=== PATIENT | male | born 1930 | race Caucasian/White ===

== ENCOUNTER 2016-07-30 09:48 | Day surgery (SDC) | payer MEDICARE, OTHER ==
--- NOTE | ~2016-07-30 | EGD ---
EGD REPORT [facility] [address] [address] NAME: KARTIK CRUZ : [birth year] STATUS : REG [facility]#: [id number] AGE: 85 ADM/REG DATE : 07/30/16 MR#: [id number] REPORT SERV DATE: 07/30/16 DICTATED BY: RONI PAIGE DATE: 07/30/16 REPORT STATUS : Draft TRANSCRIBED BY: [employer] DATE: 07/30/16 [facility] Patient Name: Kartik Cruz Date of : 1930 Attending MD: RONI PAIGE, Procedure Date No Time: 07/30/2016 Procedure: Upper GI endoscopy Indications: Iron deficiency anemia, Melena, Occult blood in stool Referring MD: MICHELLE SEVERINO Medicines: Monitored Anesthesia Care Complications: No immediate complications. Estimated blood loss: None. Procedure: Pre-Anesthesia Assessment: - ASA Grade Assessment: III - A patient with severe systemic disease. After obtaining informed consent, the endoscope was passed under direct vision. Throughout the procedure, the patient's blood pressure, pulse, and oxygen saturations were monitored continuously. The GIF [id number] was introduced through the mouth, and advanced to the second part of duodenum. The upper GI endoscopy was accomplished without difficulty. The patient tolerated the procedure well. Findings: The esophagus was normal. A single medium-sized angioectasia with bleeding was found in the gastric body. Coagulation for hemostasis using bipolar probe was successful. One hemostatic clip was successfully placed. There was no bleeding at the end of the maneuver. The exam of the stomach was otherwise normal. The examined duodenum was normal. Impression: - Normal esophagus. 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 Treated with thermal therapy. Clip was placed. - Normal examined duodenum. Recommendation: - Patient has a contact number available for emergencies. The signs and symptoms of potential delayed complications were discussed with the patient. Return to normal activities tomorrow. Written discharge instructions were provided to the patient. - Return to previous diet. - Continue present medications. - Check hemogram with white blood cell count and EGD REPORT [facility] [address] [place] [address] [place] [address] NAME: KARTIK CRUZ GARY : [birth year] STATUS : REG [facility] [place] PAT#: [id number] AGE: 85 ADM/REG DATE : 07/30/16 MR#: [id number] REPORT SERV DATE: 07/30/16 DICTATED BY: RONI PAIGE DATE: 07/30/16 REPORT STATUS : Draft TRANSCRIBED BY: [employer] DATE: 07/30/16 platelets in 1 week. Procedure Code(s): --- Professional --- 80209, Esophagogastroduodenoscopy, flexible, transoral; with control of bleeding, any method Diagnosis Code(s): --- Professional --- K31.811, Angiodysplasia of stomach and duodenum with bleeding D50.9, Iron deficiency anemia, unspecified K92.1, Melena R19.5, Other fecal abnormalities CPT copyright 2013 [employer]. All rights reserved. The codes documented in this report are preliminary and upon fishing rod mechanic review may be revised to meet current compliance requirements. RONI PAIGE, 07/30/2016 12:26 PM Number of Addenda: 0 Note Initiated On: 07/30/2016 11:57 AM Scope Withdrawal Time 0 hours 0 minutes 0 seconds [address] [place] [address]
--- NOTE | ~2016-07-30 | EGD ---
EGD REPORT [facility] [address] [address] NAME: KARTIK WATT : [birth year] STATUS : REG [facility]#: [id number] AGE: 85 ADM/REG DATE : 07/30/16 MR#: [id number] REPORT SERV DATE: 07/30/16 DICTATED BY: RONI PAIGE DATE: 07/30/16 REPORT STATUS : Draft TRANSCRIBED BY: [employer] DATE: 07/30/16 [facility] Patient Name: Kartik Watt Date of : 1930 Attending MD: RONI PAIGE, Procedure Date No Time: 07/30/2016 Procedure: Colonoscopy Indications: Gastrointestinal occult blood loss Referring MD: Vijay RENTERIA Medicines: Monitored Anesthesia Care Complications: No immediate complications. Estimated blood loss: None. Procedure: Pre-Anesthesia Assessment: - ASA Grade Assessment: III - A patient with severe systemic disease. After I obtained informed consent, the scope was passed under direct vision. Throughout the procedure, the patient's blood pressure, pulse, and oxygen saturations were monitored continuously. The CF [id number] was introduced through the anus and advanced to the cecum, identified by appendiceal orifice and ileocecal valve. The colonoscopy was performed without difficulty. The patient tolerated the procedure well. The quality of the bowel preparation was adequate. Findings: The perianal and digital rectal examinations were normal. A few small-mouthed diverticula were found in the sigmoid colon, in the descending colon and in the ascending colon. Internal hemorrhoids were found during retroflexion and were Grade I (internal hemorrhoids that do not prolapse). The exam was otherwise without abnormality. Impression: - Diverticulosis in the sigmoid colon, in the descending colon and in the ascending colon. - Internal hemorrhoids. - The examination was otherwise normal. Recommendation: - Patient has a contact number available for emergencies. The signs and symptoms of potential delayed complications were discussed with the patient. Return to normal activities tomorrow. Written discharge instructions were provided to the patient. - Return to previous diet. - Continue present medications. - Repeat colonoscopy is not recommended for screening EGD REPORT [address] [address] NAME: KARTIK WATT GARY : [birth year] STATUS : REG [facility] [place] PAT#: [id number] AGE: 85 ADM/REG DATE : 07/30/16 MR#: [id number] REPORT SERV DATE: 07/30/16 DICTATED BY: RONI PAIGE DATE: 07/30/16 REPORT STATUS : Draft TRANSCRIBED BY: [employer] DATE: 07/30/16 purposes. Procedure Code(s): --- Professional --- 60630, Colonoscopy, flexible, proximal to splenic flexure; diagnostic, with or without collection of specimen(s) by brushing or washing, with or without colon decompression (separate procedure) Diagnosis Code(s): --- Professional --- K64.0, First degree hemorrhoids K57.30, Diverticulosis of large intestine without perforation or abscess without bleeding R19.5, Other fecal abnormalities CPT copyright 2013 [employer]. All rights reserved. The codes documented in this report are preliminary and upon final assembly worker review may be revised to meet current compliance requirements. RONI PAIGE, 07/30/2016 12:28 PM Number of Addenda: 0 Note Initiated On: 07/30/2016 11:52 AM Scope Withdrawal Time 0 hours 7 minutes 8 seconds [address] [place] [address]
[~2016-07-30 09:48] MED LIST: ASAB PO; ATV1 PO; C1 PO; CENTRUM PO; CIALIS5 MG PO; FESO4 PO; FLOMAX4 PO; FLONASE NAS; KONSYL; LIPITOR40 PO; LISINOPRIL40 MG PO; LOVENOX40 SQ; MICROZIDE PO; MULTIPLE VIT PO; SYSTANE OPH; TOPXL50 PO; TRAZ50 PO; WARFARIN PO; ZESTRIL20 MG PO
[2016-07-30 10:35] LABS: INTERNATIONAL NORMAL RATI 2.6 UNITS (-); PROTIME (NOT ORD) 27.5 SEC (12.0-14.5)
== END 2016-07-30 23:59 | disposition home or self-care (01) ==
LOC: DMU 09:48
PROVIDERS: Anesthesiology; Internal Medicine Gastroenterology
PROC: 0DJD8ZZ Inspection of Lower Intestinal Tract, Via Natural or Artificial Opening Endoscopic (ICD-10-PCS; principal; 2016-07-30 12:00)
PROC: 0W3P8ZZ Control Bleeding in Gastrointestinal Tract, Via Natural or Artificial Opening Endoscopic (ICD-10-PCS; 2016-07-30 12:00)
DX: K57.30 Diverticulosis of large intestine without perforation or abscess without bleeding (principal); K64.0 First degree hemorrhoids; K31.811 Angiodysplasia of stomach and duodenum with bleeding; I48.91 Unspecified atrial fibrillation; I10 Essential (primary) hypertension; Z95.2 Presence of prosthetic heart valve; Z91.09 Other allergy status, other than to drugs and biological substances; Z91.011 Allergy to milk products; Z88.1 Allergy status to other antibiotic agents; Z79.01 Long term (current) use of anticoagulants; Z79.82 Long term (current) use of aspirin; Z79.51 Long term (current) use of inhaled steroids; Z79.899 Other long term (current) drug therapy
CPT/HCPCS: 85610